=== PATIENT | female | born 1980 | race Caucasian/White ===

== ENCOUNTER 2018-02-18 03:38 | Inpatient (IN) ==
[2018-02-18] MEDS ORDERED: D5LR 1,000 ML IV PRN (06:18)
[2018-02-18] MEDS ORDERED: CARBOPROST 250 MCG/ML INJECTION IM PRN (06:18)
[2018-02-18] MEDS ORDERED: MAG-AL + SIM ORAL LIQUID 30ml PO PRN (06:18)
[2018-02-18] MEDS ORDERED: CALCIUM CARBONATE Chewable 500mg TABLET PO PRN (06:18)
[2018-02-18] MEDS ORDERED: METHYLERGONOVINE 0.2 MG/ML INJECTION IM PRN (06:18)
[2018-02-18] MEDS ORDERED: LIDOCAINE 1% (10mg/ml) 2mL INJ PF SDV ID PRN (06:18)
[2018-02-18] MEDS ORDERED: OXYTOCIN DRIP 30 UNIT/500 ML ML IV PRN ×2 (06:18→07:38)
[2018-02-18] MEDS: LR 1,000 ML IV PRN ×2 (06:30→11:03)
[2018-02-18 07:08] VITALS: BMI 35.1
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
[2018-02-18] MEDS: BENZOCAINE/MENTHOL SORE THROAT LOZENGE MM PRN ×3 (10:31→15:32)
[2018-02-18] MEDS ORDERED: HYDROCODONE/APAP 5mg/325mg TABLET PO PRN (13:24)
[2018-02-18] MEDS ORDERED: TETANUS, DIPHTHERIA, a PERTUSSIS (Tdap) 0.5ml INJECTION IM ONE (13:24)
[2018-02-18] MEDS ORDERED: DiphenhydrAMINE 25 MG CAPSULE PO PRN (13:24)
[2018-02-18] MEDS ORDERED: HYDROCORTISONE 2.5% CREAM 30gm RECTALLY PRN (13:24)
[2018-02-18] MEDS ORDERED: OXYTOCIN DRIP 30 UNIT/500 ML ML IV SCH (13:30)
[2018-02-18] MEDS ORDERED: ONDANSETRON 4 MG/2 ML INJECTION IVP PRN (13:59)
[2018-02-18] MEDS ORDERED: DiphenhydrAMINE 50 MG/ML INJECTION IVP PRN (13:59)
[2018-02-18] MEDS ORDERED: NALOXONE 0.4 MG/ML INJECTION IVP PRN (13:59)
[2018-02-18] MEDS ORDERED: ROPIVACAINE 1% 10MG/ML INJ 200 MG, SUFentanil 50 MCG in NS 100 ML EPI PRN (13:59)
--- NOTE | 2018-02-18 14:09 | Labor and Delivery Note ---
DATE 02/18/2018 Katlin is a 37-year-old 5, para 4 at 38 weeks gestational age. She is a patient of Dr. Petersen' who was being induced today for chronic hypertension and gestational diabetes. When the patient was complete and pushing, Dr. Petersen was scrubbed into surgery so I was called to attend the delivery. She pushed for one contraction and had a spontaneous vaginal delivery in the SOCOR[place] position. There was a loose nuchal cord x1 that was delivered through. Baby was vigorous at delivery so she was placed on mom's abdomen and the cord clamping was delayed for more than two minutes. The placenta delivered spontaneously. She had a small right periurethral laceration. Pressure was held on this to obtain hemostasis. Baby is a viable female , Apgars 9/9. At this point, baby is still [id number] and has not been weighed or named. Mom and baby tolerated the delivery well. MTDD
[2018-02-18] MEDS: IBUPROFEN 800 MG TABLET PO PRN (16:44)
--- NOTE | 2018-02-18 17:08 | Anesthesia Postoperative Note ---
- Date and Time Date: 02/18/18 Time: 17:08 - Status Patient Participated in Evaluation: Patient Participated in Person Vital Signs: Temperature 98.4 F 02/18/18 06:51 Pulse Rate 78 02/18/18 06:51 Respiratory Rate 18 02/18/18 06:51 Blood Pressure 146/82 H 02/18/18 06:51 Pulse Oximetry 98 02/18/18 06:51 Respiratory Function: Airway Patent Cardiovascular Function: Regular Pulse Mental Status: Alert and Oriented Pain Intensity: 0 Hydration: Taking PO Fluids Complications During Recover: None Apparent - Follow-Up Instructions Instructions: Per Surgeon
[2018-02-18] MEDS: ACETAMINOPHEN 500 MG TABLET PO PRN (21:55)
[2018-02-19] MEDS: IBUPROFEN 800 MG TABLET PO PRN ×2 (01:59→14:25)
[2018-02-19] MEDS: ACETAMINOPHEN 500 MG TABLET PO PRN (06:54)
[2018-02-19] MEDS ORDERED: DOCUSATE CALCIUM 240 MG CAPSULE PO SCH (09:00)
[2018-02-19 10:20] VITALS: RESP 20; TEMP 98.1; O2SAT 98
[2018-02-19 12:36] VITALS: BP 154/86; PULSE 75
--- NOTE | 2018-02-19 12:40 | OB/GYN Progress Note ---
OB-PP Progress Note - General PPD1 Maternal Group B Strep: Negative Maternal blood type: O+ (o) Maternal Rubella Status: Immune - Subjective Date: 02/19/18 Lochia: Minimal Pain: controlled Voiding: voiding - Objective Vital Signs: Last Vital Signs Temp 98.1 F 02/19/18 10:00 Pulse 79 02/19/18 10:00 Resp 20 02/19/18 10:00 BP 167/71 H 02/19/18 12:03 Pulse Ox 98 02/19/18 10:00 Urine Output: good General: alert and oriented - Assessment Assessment: Comments: CHTN with superimposed mild preeclampsia A1 GDM - Plan Plan: routine care, discharge home Follow up with Dr. Petersen in 1 week for BP check.
== END 2018-02-19 16:04 | disposition home or self-care (01) | DRG 775 ==
LOC: MC 06:13
PROVIDERS: ADMIT Obstetrics & Gynecology; ATTEND Obstetrics & Gynecology